=== PATIENT | female | born 1985 | race Caucasian/White ===

== ENCOUNTER 2018-04-29 17:36 | Emergency (ER) | payer OTHER ==
[~2018-04-29] VITALS: Ht 165.1 cm; Wt 63.5 kg
--- NOTE | 2018-04-29 18:01 | ED GI/GU/ABDOMINAL COMPLAINT ---
History of Present Illness General Chief Complaint: General Adult Stated Complaint: ?MISCARRIAGE Source: patient Exam Limitations: no limitations Vital Signs & Intake/Output Vital Signs & Intake/Output Vital Signs Date Time Temp Pulse Resp B/P B/P Pulse O2 O2 Flow FiO2 Mean Ox Delivery Rate 04/29 1938 97.8 74 18 100/62 99 Room Air 04/29 1926 97.6 72 17 102/58 99 Room Air 04/29 1748 97.5 75 18 127/63 100 Room Air Allergies Uncoded Allergies: IV CONSTRAST (RASH 04/29/18) Triage Note: PT STATES HER DRMargarito THINKS SHE MAY BE HAVING A MISCARRIAGE. PT STATES SHE IS 5 WEEKS . PT HAVING HEAVY VAGINAL BLEEDING FOR THE PAST 3 HOURS. PT STATSE SHE IS HAVING CRAMPING. PT STATES SHE JUST SEES THE BLOOD WHEN SHE URINATES. PARA 2 GRAV1 Triage Nurses Notes Reviewed? yes ? Y Is pt currently ? No Onset: Abrupt Duration: constant Timing: single episode today Quality/Severity: cramping Severity Numbers: 3 Location: suprapubic HPI: Patient is a 32-year-old female with past medical history of hypothyroidism who is a who currently received IUI treatment for fertility promotion in which she states that her last menstrual period was March 24 in which she is approximately 4-5 weeks she had a initial evaluation yesterday by her fertility doctor in which her hCG was 62 patient states that when she woke up today she was in her normal state of health patient had acute onset of generalized lower quadrant abdominal cramping sensation She was also having persistent vaginal bleeding with passing of tissue since her symptoms began today Denies any dysuria or back pain nausea vomiting lightheaded sensation dizziness or weakness. It is noted the patient received an initial RHOGAM administration (Jai Knutson) Past History Travel History Traveled to [place] past 21 day No Medical History Any Pertinent Medical History? see below for history Endocrine: hypothyroidism Cancer(s): HODGKINS LYMPHOMA Surgical History Surgical History: Psychosocial History What is your primary language Turkish Tobacco Use: Never used ETOH Use: denies use Illicit Drug Use: denies illicit drug use Family History Hx Contributory? No (Jai Knutson) Review of Systems Review of Systems Constitutional: Reports: no symptoms. EENTM: Reports: no symptoms. Respiratory: Reports: no symptoms. Cardiovascular: Reports: no symptoms. GI: Reports: see HPI, abdominal pain. Genitourinary: Reports: no symptoms. Musculoskeletal: Reports: no symptoms. Skin: Reports: no symptoms. Neurological/Psychological: Reports: no symptoms. Hematologic/Endocrine: Reports: see HPI, bleeding. Immunologic/Allergic: Reports: no symptoms. All Other Systems: Reviewed and Negative (Jai Knutson) Physical Exam Physical Exam General Appearance: no apparent distress, alert, comfortable Head: atraumatic Eyes: Bilateral: normal appearance. Ears, Nose, Throat, Mouth: moist mucous membrane Neck: normal inspection Respiratory: chest non-tender, no respiratory distress Cardiovascular: regular rate/rhythm Gastrointestinal: normal bowel sounds, soft, tenderness Extremities: normal range of motion Neurologic/Psych: no motor/sensory deficits, awake, oriented x 3 Skin: intact, normal color Core Measures ACS in differential dx? No Sepsis Present: No Sepsis Focused Exam Completed? No (Jai Knutson) Progress Differential Diagnosis: appendicitis, biliary colic, bowel obstruction, colon cancer, cholecystitis, diverticulitis, ectopic , endometritis, esophageal varices, gastritis, hepatitis, hernia, hemorrhoids, ischemic bowel, inflamm bowel dis, intrauterine , kidney stone, Con[place]ug[place] tear, ovarian cyst, ovarian torsion, pancreatitis, PID/cervicitis, peptic ulcer, PUD/ GERD, perforated viscous, SBO, threatened AB, UTI/pyelo Plan of Care: Orders Procedure Date/time Status BLOOD PRODUCT PICKUP 04/29 1908 Active RHO D IMMUNE GLOBULIN - 300MCG 04/29 1757 Complete URINALYSIS 04/29 1752 Complete HUMAN BETA HCG TITRE 04/29 1752 Complete COMPREHENSIVE METABOLIC PANEL 04/29 1752 Complete CBC WITHOUT DIFFERENTIAL 04/29 1752 Complete RHOGAM WORK-UP 04/29 1752 Complete Laboratory Tests 04/29/18 1820: Urine Color YEL, Urine Clarity CLEAR, Urine pH 6.5, Ur Specific [place] 1.010, Urine Protein NEG, Urine Ketones NEG, Urine Nitrite NEG, Urine Bilirubin NEG, Urine Urobilinogen 0.2, Ur Leukocyte Esterase NEG, Ur Microscopic SEDIMENT EXAMINED, Urine RBC 1-3, Urine WBC RARE, Ur Epithelial Cells RARE, Urine Bacteria FEW H, Urine Mucus RARE, Urine Hemoglobin MOD H, Urine Glucose NEG 04/29/181756: Anion Gap 12, Estimated GFR > 60, BUN/Creatinine Ratio 15.7, Glucose 105 H, Calcium 10.0, Total Bilirubin 0.3, AST 26, ALT 32, Alkaline Phosphatase 54, Total Protein 7.6, Albumin 4.5, Globulin 3.1, Albumin/Globulin Ratio 1.5, Beta HCG, Quant 104.6, CBC w Diff NO MAN DIFF REQ, RBC 4.28, MCV 93.1, MCH 31.3 H, MCHC 33.6, RDW 13.2, MPV 7.1 L, Gran % 77.5 H, Lymphocytes % 14.2 L, Monocytes % 7.0, Eosinophils % 1.0, Basophils % 0.3, Absolute Granulocytes 7.5 H, Absolute Lymphocytes 1.4, Absolute Monocytes 0.7 H, Absolute Eosinophils 0.1 , Absolute Basophils 0 Plan I initial examination patient is at bedside patient has generalized abdominal lower quadrant pain with no peritoneal signs no rebound tenderness patient was offered pain medications declines patient was normotensive No anemia after blood work was resulted patient was given RHOGAM after she signed consent form with medications Ultrasound was resulted she was given copies of ultrasound and blood work for follow-up with her fertility provided. Upon discharge patient looks well no apparent distress and has no questions MINIMAL SUSPICION OF APPENDICITIS Diagnostic Imaging: Viewed by Me: Ultrasound. Radiology Impression: SEE COMMENTS Initial ED EKG: none Comments: PATIENT: OTIS MOYER PRESENT AGE: 32 PATIENT ACCOUNT NO: [id number] : 86 LOCATION: [facility] ORDERING PHYSICIAN: Hayden MCKEON SERVICE DATE: 04/29/18 EXAM TYPE: US - US TRANSVAG EXAMINATION: US TRANSVAGINAL CLINICAL INFORMATION: Cramping and vaginal bleeding. 5 weeks . COMPARISON: No relevant prior imaging. TECHNIQUE: Grayscale and duplex sonographic imaging of the pelvis was performed by a skilled tire mechanic via transvaginal and transabdominal technique. FINDINGS: There is an anteverted uterus measuring 9 cm in length and the uterine fundus measures 4.3 x 4.7 cm in AP by transverse dimensions. Cervical length is 2.6 cm. A few small nabothian cysts are visualized within the cervix. There is no evidence of a gestational sac or pole within the endometrial cavity. The right ovary is normal and measures 3.8 x 2.9 x 4.2 cm. Duplex interrogation demonstrates normal arterial and venous waveforms within the right ovary. The left ovary measures 2.2 x 2.1 x 1.9 cm. Duplex interrogation demonstrates normal arterial and venous waveforms within the left ovary. There is trace nonspecific fluid within the cul-de-sac. IMPRESSION: No gestational sac was visualized. Of note a gestational sac may not be visible this early in therefore patient should be followed with serial serum hCG studies by the patient's telegraph repeater mechanic. A follow-up ultrasound can be obtained within the next 2-3 weeks if necessary. DICTATED BY: Otis VENTURA,Preston Palacio DATE/TIME DICTATED:04/29/181939 SLOT MACHINE KEY PERSON:THANIA DATE/TIME TRANSCRIBED:04/29/181939 CONFIDENTIAL, DO NOT COPY WITHOU (Jai Knutson) Departure Departure Disposition: HOME OR SELF CARE Condition: Stable Clinical Impression Primary Impression: Threatened Secondary Impressions: Abdominal pain during Referrals: Flory Witt MD (PCP/Family) Additional Instructions: As discussed please follow-up with your fertility provider tomorrow for further evaluation and treatment please provide them with copies of blood work an ultrasound provided to the emergency room, begin Tylenol for pain as directed. If symptoms worsen or if YOU develop A new concerning symptom return to the emergency room. Departure Forms: Customer Survey General Discharge Information (Jai Knutson) PA/COMPARATIVE SOCIOLOGY PROFESSOR Co-Sign Statement Statement: ED Attending supervision documentation- [X] I saw and evaluated the patient. I have also reviewed all the pertinent lab results and diagnostic results. I agree with the findings and the plan of care as documented in the PA's/COMPARATIVE SOCIOLOGY PROFESSOR's documentation. [X] I have reviewed the ED Record and agree with the PA's/COMPARATIVE SOCIOLOGY PROFESSOR's documentation. [] Additions or exceptions (if any) to the PAs/COMPARATIVE SOCIOLOGY PROFESSOR's note and plan are summarized below: [] (Krystyna VENTURA,Kaden Gonzalez)
[2018-04-29 18:05] LABS: ABSOLUTE BASOPHIL COUNT 0 /CUMM (0.0-0.2); ABSOLUTE EOSINOPHIL COUNT 0.1 /CUMM (0.0-0.7); ABSOLUTE GRANULOCYTE CT 7.5 /CUMM (1.4-6.5); ABSOLUTE LYMPH COUNT 1.4 /CUMM (1.2-3.4); ABSOLUTE MONOCYTE COUNT 0.7 /CUMM (0.10-0.60); BASOPHIL % 0.3 % (0.0-2.0); GRANULOCYTE % 77.5 % (42.2-75.2); HEMATOCRIT 39.9 % (37-47); MEAN CORPUSCULAR HGB 31.3 PG (27.0-31.0); MEAN CORPUSCULAR HGB CONC 33.6 G/DL (33.0-37.0); MEAN CORPUSCULAR VOLUME 93.1 FL (81.0-99.0); MEAN PLATELET VOLUME 7.1 FL (7.4-10.4); PLATELET COUNT 304 /CUMM (130-400); RBC DISTRIBUTION WIDTH 13.2 % (11.5-14.5); RED BLOOD CELL CT 4.28 /CUMM (4.20-5.40); WHITE BLOOD CELL COUNT 9.7 /CUMM (4.8-10.8)
[2018-04-29 19:38] VITALS: BP 100/62
--- NOTE | 2018-04-29 19:53 | ULTRASOUND REPORT ---
EXAMINATION: US TRANSVAGINAL CLINICAL INFORMATION: Cramping and vaginal bleeding. 5 weeks . COMPARISON: No relevant prior imaging. TECHNIQUE: Grayscale and duplex sonographic imaging of the pelvis was performed by a skilled croze cutter via transvaginal and transabdominal technique. FINDINGS: There is an anteverted uterus measuring 9 cm in length and the uterine fundus measures 4.3 x 4.7 cm in AP by transverse dimensions. Cervical length is 2.6 cm. A few small nabothian cysts are visualized within the cervix. There is no evidence of a gestational sac or pole within the endometrial cavity. The right ovary is normal and measures 3.8 x 2.9 x 4.2 cm. Duplex interrogation demonstrates normal arterial and venous waveforms within the right ovary. The left ovary measures 2.2 x 2.1 x 1.9 cm. Duplex interrogation demonstrates normal arterial and venous waveforms within the left ovary. There is trace nonspecific fluid within the cul-de-sac. IMPRESSION: No gestational sac was visualized. Of note a gestational sac may not be visible this early in therefore patient should be followed with serial serum hCG studies by the patient's mechanical engineering lecturer. A follow-up ultrasound can be obtained within the next 2-3 weeks if necessary.
== END 2018-04-29 20:06 ==
LOC: ERH 17:36
PROVIDERS: Physician Assistant Medical
DX: O20.0 Threatened abortion (principal)
CPT/HCPCS: 76817; 81001; J2790